=== PATIENT | male | born 1955 | race Caucasian/White ===

== ENCOUNTER 2017-04-11 13:23 | Inpatient (IN) | payer SELFPAY ==
[~2017-04-11 13:23] MED LIST: ALBUTEROL17 GM INH; ATENOLOL25 MG PO; AZITHROMYCIN250 MG PO; COMBIVENT1 PUFF INH; IBUPROFEN800 MG PO; LISINOPRIL PO; LISINOPRIL10 MG PO; NICODERM21 MG/PATC TD; PREDNISONE10 MG PO; TRAMADOL100 MG PO; TYLENOL325 MG PO
[2017-04-11] MEDS ORDERED: IBUPROFEN200 M2 PO (13:36)
[2017-04-11 14:03] LABS: BASO % 0.1 % (0-2); EOS % 0.1 % (0-7); HCT-HEMATOCRIT 37.5 % (36.0-53.5); HGB-HEMOGLOBIN 13.3 gm/dl (13.5-17.0); IMMATURE GRANULOCYTES ABSOLUTE 0.07 tho/cmm (0-0.03); IMMATURE GRANULOCYTES PERCENT 0.4 % (0-0.3); LYMPH % 3.4 % (20-45); LYMPH ABSOLUTE COUNT 0.6 tho/cmm (0.8-4.5); MCH (MEAN CORPUSCULAR HGB) 33.2 pg (28.0-32.0); MCHC MEAN CORPUSCULAR HGB CONC 35.5 % (32.0-36.0); MCV (MEAN CELL VOLUME) 93.5 fl (82.0-96.0); MEAN PLATELET VOLUME 10.1 cmc (9.4-12.4); MONO % 5.4 % (0-12); MONOCYTE ABSOLUTE COUNT 0.9 tho/cmm (0.0-1.2); NEUTROPHIL ABSOLUTE COUNT 14.8 tho/cmm (1.6-8.0); NEUTROPHIL-AUTOMATED 14.8 tho/cmm (1.6-8.0); NEUTROPHILS % 90.6 % (40-80); PLATELET COUNT 228 tho/cmm (150-450); RED BLOOD COUNT 4.01 mil/cmm (4.40-5.70); RED CELL DISTRIBUTION WIDTH 13.2 % (12.4-16.4); WHITE BLOOD COUNT 16.3 tho/cmm (4.0-10.0)
[2017-04-11 14:21] LABS: ALB/GLOB RATIO 0.5 (0.8-2.0); ALBUMIN 2.7 g/dl (3.5-5.0); ALKALINE PHOSPHATASE 80 U/L (33-138); ALT/SGPT 27 U/L (12-78); BILIRUBIN,TOTAL 0.8 mg/dl (0.0-1.5); BLOOD UREA NITROGEN 12 mg/dl (6-24); CALCIUM 8.8 mg/dl (8.5-10.5); CARBON DIOXIDE-VENOUS 22 mmol/L (22-32); CHLORIDE 102 mmol/l (96-110); CREATININE 0.77 mg/dl (0.60-1.30); GLUCOSE 96 mg/dL (70-110); SODIUM 134 mmol/L (135-145); eGFR VALUE FOR BLACK >90 mL/Min
[2017-04-11 14:24] LABS: ANION GAP 14 mmol/L (0-20); AST/SGOT 44 U/L (10-40); POTASSIUM 3.6 mmol/L (3.7-5.1)
[2017-04-11 14:35] LABS: PROCALCITONIN 3.17 ng/ml (0.05-0.09)
[2017-04-11 20:31] LABS: ALB/GLOB RATIO 0.5 (0.8-2.0); ALBUMIN 2.3 g/dl (3.5-5.0); ALKALINE PHOSPHATASE 78 U/L (33-138); ALT/SGPT 27 U/L (12-78); BILIRUBIN,TOTAL 0.8 mg/dl (0.0-1.5); BLOOD UREA NITROGEN 9 mg/dl (6-24); CARBON DIOXIDE-VENOUS 22 mmol/L (22-32); CHLORIDE 110 mmol/l (96-110); CREATININE 0.76 mg/dl (0.60-1.30); SODIUM 140 mmol/L (135-145); eGFR VALUE FOR BLACK >90 mL/Min
[2017-04-11 20:32] LABS: ANION GAP 12 mmol/L (0-20); AST/SGOT 43 U/L (10-40); GLUCOSE 150 mg/dL (70-110); POTASSIUM 4.1 mmol/L (3.7-5.1)
[2017-04-12 04:13] LABS: BASO % 0.1 % (0-2); HCT-HEMATOCRIT 38.4 % (36.0-53.5); HGB-HEMOGLOBIN 13.2 gm/dl (13.5-17.0); IMMATURE GRANULOCYTES ABSOLUTE 0.09 tho/cmm (0-0.03); IMMATURE GRANULOCYTES PERCENT 0.6 % (0-0.3); LYMPH % 3.8 % (20-45); LYMPH ABSOLUTE COUNT 0.5 tho/cmm (0.8-4.5); MCH (MEAN CORPUSCULAR HGB) 32.7 pg (28.0-32.0); MCHC MEAN CORPUSCULAR HGB CONC 34.4 % (32.0-36.0); MEAN PLATELET VOLUME 10.2 cmc (9.4-12.4); MONO % 3.3 % (0-12); MONOCYTE ABSOLUTE COUNT 0.5 tho/cmm (0.0-1.2); NEUTROPHIL ABSOLUTE COUNT 12.9 tho/cmm (1.6-8.0); NEUTROPHIL-AUTOMATED 12.9 tho/cmm (1.6-8.0); NEUTROPHILS % 92.2 % (40-80); PLATELET COUNT 209 tho/cmm (150-450); RED BLOOD COUNT 4.04 mil/cmm (4.40-5.70); RED CELL DISTRIBUTION WIDTH 13.4 % (12.4-16.4); WHITE BLOOD COUNT 14.1 tho/cmm (4.0-10.0)
[2017-04-12 04:31] LABS: BLOOD UREA NITROGEN 10 mg/dl (6-24); CALCIUM 8.3 mg/dl (8.5-10.5); CARBON DIOXIDE-VENOUS 23 mmol/L (22-32); CREATININE 0.72 mg/dl (0.60-1.30); GLUCOSE 221 mg/dL (70-110); eGFR VALUE FOR BLACK >90 mL/Min
[2017-04-12 05:23] LABS: ANION GAP 13 mmol/L (0-20); CHLORIDE 111 mmol/l (96-110); SODIUM 143 mmol/L (135-145)
[2017-04-12 05:27] LABS: POTASSIUM 3.8 mmol/L (3.7-5.1)
[2017-04-13 06:38] LABS: BASO % 0.1 % (0-2); HCT-HEMATOCRIT 36.2 % (36.0-53.5); HGB-HEMOGLOBIN 12.6 gm/dl (13.5-17.0); IMMATURE GRANULOCYTES PERCENT 1.1 % (0-0.3); LYMPH % 5.2 % (20-45); LYMPH ABSOLUTE COUNT 0.9 tho/cmm (0.8-4.5); MCH (MEAN CORPUSCULAR HGB) 32.7 pg (28.0-32.0); MCHC MEAN CORPUSCULAR HGB CONC 34.8 % (32.0-36.0); MEAN PLATELET VOLUME 10.7 cmc (9.4-12.4); MONO % 8.8 % (0-12); MONOCYTE ABSOLUTE COUNT 1.5 tho/cmm (0.0-1.2); NEUTROPHIL ABSOLUTE COUNT 14.8 tho/cmm (1.6-8.0); NEUTROPHIL-AUTOMATED 14.8 tho/cmm (1.6-8.0); NEUTROPHILS % 84.8 % (40-80); PLATELET COUNT 271 tho/cmm (150-450); RED BLOOD COUNT 3.85 mil/cmm (4.40-5.70); RED CELL DISTRIBUTION WIDTH 13.3 % (12.4-16.4); WHITE BLOOD COUNT 17.5 tho/cmm (4.0-10.0)
[2017-04-13 06:39] LABS: BLOOD UREA NITROGEN 20 mg/dl (6-24); CALCIUM 8.8 mg/dl (8.5-10.5); CARBON DIOXIDE-VENOUS 24 mmol/L (22-32); CHLORIDE 104 mmol/l (96-110); CREATININE 0.73 mg/dl (0.60-1.30); SODIUM 138 mmol/L (135-145); eGFR VALUE FOR BLACK >90 mL/Min
[2017-04-13 06:40] LABS: ANION GAP 14 mmol/L (0-20); GLUCOSE 109 mg/dL (70-110); POTASSIUM 4.1 mmol/L (3.7-5.1)
[2017-04-14 05:51] LABS: WHITE BLOOD COUNT 12.9 tho/cmm (4.0-10.0)
[2017-04-15 05:56] LABS: HCT-HEMATOCRIT 41.6 % (36.0-53.5); HGB-HEMOGLOBIN 14.5 gm/dl (13.5-17.0); MCH (MEAN CORPUSCULAR HGB) 32.7 pg (28.0-32.0); MCHC MEAN CORPUSCULAR HGB CONC 34.9 % (32.0-36.0); MCV (MEAN CELL VOLUME) 93.7 fl (82.0-96.0); MEAN PLATELET VOLUME 9.8 cmc (9.4-12.4); NEUTROPHIL-AUTOMATED 8.9 tho/cmm (1.6-8.0); RED BLOOD COUNT 4.44 mil/cmm (4.40-5.70); RED CELL DISTRIBUTION WIDTH 13.5 % (12.4-16.4)
[2017-04-15 06:10] LABS: BASO % 0.5 % (0-2); BASO ABSOLUTE COUNT 0.1 tho/cmm (0.0-0.2); EOS % 0.7 % (0-7); EOSINOPHIL ABSOLUTE COUNT 0.1 tho/cmm (0.0-0.7); IMMATURE GRANULOCYTES ABSOLUTE 0.73 tho/cmm (0-0.03); IMMATURE GRANULOCYTES PERCENT 5.2 % (0-0.3); LYMPH % 23.7 % (20-45); LYMPH ABSOLUTE COUNT 3.3 tho/cmm (0.8-4.5); MONO % 6.6 % (0-12); MONOCYTE ABSOLUTE COUNT 0.9 tho/cmm (0.0-1.2); NEUTROPHIL ABSOLUTE COUNT 8.9 tho/cmm (1.6-8.0); NEUTROPHILS % 63.3 % (40-80); PLATELET COUNT 428 tho/cmm (150-450)
[2017-04-15] MEDS ORDERED: DELTASONE20 MG PO (12:24)
[2017-04-15] MEDS ORDERED: ROBITUSSIN COU118 M7 PO (12:25)
[2017-04-15] MEDS ORDERED: AMOXICILLIN500 M1 PO (12:26)
[2017-04-15] MEDS ORDERED: CULTURELLE1 EAC1 PO (12:29)
== END 2017-04-15 15:30 | DRG 190 ==
LOC: EDMED 13:23 → EMR2 15:50 → 5WE 17:30
PROVIDERS: Emergency Medicine; ADMIT Family Medicine
DX: J44.0 Chronic obstructive pulmonary disease with (acute) lower respiratory infection (principal); J15.4 Pneumonia due to other streptococci; R78.81 Bacteremia; E87.1 Hypo-osmolality and hyponatremia; E44.1 Mild protein-calorie malnutrition; J44.1 Chronic obstructive pulmonary disease with (acute) exacerbation; B95.5 Unspecified streptococcus as the cause of diseases classified elsewhere; E87.6 Hypokalemia; F17.210 Nicotine dependence, cigarettes, uncomplicated; Z68.26 Body mass index [BMI] 26.0-26.9, adult
CPT/HCPCS: G0009; J0696; J1650; J1956; J2930; J3370; J7030; J7512

== ENCOUNTER 2017-05-09 13:08 | Inpatient (IN) | payer SELFPAY ==
[~2017-05-09 13:08] MED LIST changes: +AMOXICILLIN500 M1 PO; +CULTURELLE1 EAC1 PO; +DELTASONE20 MG PO; +IBUPROFEN200 M2 PO; +ROBITUSSIN COU118 M7 PO
[2017-05-09 13:50] LABS: BASO % 0.5 % (0-2); EOS % 0.1 % (0-7); HCT-HEMATOCRIT 41.7 % (36.0-53.5); HGB-HEMOGLOBIN 14.6 gm/dl (13.5-17.0); IMMATURE GRANULOCYTES ABSOLUTE 0.02 tho/cmm (0-0.03); IMMATURE GRANULOCYTES PERCENT 0.2 % (0-0.3); LYMPH % 25.8 % (20-45); LYMPH ABSOLUTE COUNT 2.3 tho/cmm (0.8-4.5); MCH (MEAN CORPUSCULAR HGB) 32.6 pg (28.0-32.0); MCV (MEAN CELL VOLUME) 93.1 fl (82.0-96.0); MEAN PLATELET VOLUME 10.3 cmc (9.4-12.4); MONO % 3.2 % (0-12); MONOCYTE ABSOLUTE COUNT 0.3 tho/cmm (0.0-1.2); NEUTROPHIL ABSOLUTE COUNT 6.2 tho/cmm (1.6-8.0); NEUTROPHIL-AUTOMATED 6.2 tho/cmm (1.6-8.0); NEUTROPHILS % 70.2 % (40-80); PLATELET COUNT 232 tho/cmm (150-450); RED BLOOD COUNT 4.48 mil/cmm (4.40-5.70); WHITE BLOOD COUNT 8.9 tho/cmm (4.0-10.0)
[2017-05-09 14:00] LABS: INR 0.9 INR (0.9-1.1); PROTHROMBIN TIME 10.5 SECONDS (9.0-13.6)
[2017-05-09 14:15] LABS: ALCOHOL (ETOH) 276 mg/dl (<10); ALKALINE PHOSPHATASE 80 U/L (33-138); ALT/SGPT 53 U/L (12-78); BILIRUBIN,TOTAL 0.8 mg/dl (0.0-1.5); BLOOD UREA NITROGEN 12 mg/dl (6-24); CALCIUM 8.7 mg/dl (8.5-10.5); CARBON DIOXIDE-VENOUS 20 mmol/L (22-32); CHLORIDE 108 mmol/l (96-110); CREATININE 0.87 mg/dl (0.60-1.30); LIPASE 173 U/L (73-393); PHOSPHOROUS 3.3 mg/dl (2.5-4.9); SODIUM 144 mmol/L (135-145); eGFR VALUE FOR BLACK >90 mL/Min
[2017-05-09 14:22] LABS: ALB/GLOB RATIO 0.9 (0.8-2.0); ALBUMIN 3.7 g/dl (3.5-5.0); ANION GAP 20 mmol/L (0-20); BILIRUBIN,INDIRECT 0.6 mg/dL (0.0-1.0); POTASSIUM 4.2 mmol/L (3.7-5.1)
[2017-05-09 14:23] LABS: AST/SGOT 72 U/L (10-40); BILIRUBIN,DIRECT 0.2 mg/dl (0.0-0.3); MAGNESIUM 2.2 mg/dl (1.8-2.6)
[2017-05-09 14:41] LABS: GLUCOSE 65 mg/dL (70-110)
[2017-05-09] MEDS ORDERED: NORCO 5-325 TA1 EACH PO (15:33)
[2017-05-09] MEDS ORDERED: COLACE100 M1 PO (15:34)
[2017-05-09 17:23] LABS: URINE APPEARANCE CLEAR; URINE BILIRUBIN NEGATIVE (NEG); URINE BLOOD NEGATIVE (NEG); URINE COLOR YELLOW; URINE GLUCOSE (UA) NEGATIVE (NEG); URINE KETONE SMALL (NEG); URINE LEUKOCYTE ESTERASE NEGATIVE (NEG); URINE NITRITE NEGATIVE (NEG); URINE PROTEIN NEGATIVE (NEG)
[2017-05-09 17:31] LABS: URINE RBC RARE /[HPF] (0-5); URINE WBC RARE /[HPF] (0-5)
[2017-05-09 17:32] LABS: URINE AMORPHOUS 1+; URINE MUCUS 1+
[2017-05-09 17:36] LABS: PROCALCITONIN <0.05 ng/ml (0.05-0.09)
[2017-05-09 21:56] LABS: ALB/GLOB RATIO 0.9 (0.8-2.0); ALBUMIN 3.2 g/dl (3.5-5.0); ALKALINE PHOSPHATASE 66 U/L (33-138); ALT/SGPT 43 U/L (12-78); ANION GAP 16 mmol/L (0-20); AST/SGOT 50 U/L (10-40); BLOOD UREA NITROGEN 7 mg/dl (6-24); CALCIUM 7.7 mg/dl (8.5-10.5); CARBON DIOXIDE-VENOUS 23 mmol/L (22-32); CHLORIDE 108 mmol/l (96-110); CREATININE 0.65 mg/dl (0.60-1.30); GLUCOSE 85 mg/dL (70-110); POTASSIUM 3.5 mmol/L (3.7-5.1); SODIUM 143 mmol/L (135-145); eGFR VALUE FOR BLACK >90 mL/Min
[2017-05-09 21:59] LABS: ALCOHOL (ETOH) 53 mg/dl (<10)
[2017-05-10 04:19] LABS: BASO % 0.2 % (0-2); HCT-HEMATOCRIT 37.9 % (36.0-53.5); HGB-HEMOGLOBIN 13.2 gm/dl (13.5-17.0); LYMPH % 6.4 % (20-45); LYMPH ABSOLUTE COUNT 0.4 tho/cmm (0.8-4.5); MCH (MEAN CORPUSCULAR HGB) 32.2 pg (28.0-32.0); MCHC MEAN CORPUSCULAR HGB CONC 34.8 % (32.0-36.0); MCV (MEAN CELL VOLUME) 92.4 fl (82.0-96.0); MEAN PLATELET VOLUME 10.6 cmc (9.4-12.4); MONO % 0.2 % (0-12); NEUTROPHIL ABSOLUTE COUNT 5.1 tho/cmm (1.6-8.0); NEUTROPHIL-AUTOMATED 5.1 tho/cmm (1.6-8.0); NEUTROPHILS % 93.2 % (40-80); PLATELET COUNT 205 tho/cmm (150-450); RED CELL DISTRIBUTION WIDTH 12.5 % (12.4-16.4); WHITE BLOOD COUNT 5.5 tho/cmm (4.0-10.0)
[2017-05-10 04:30] LABS: ANION GAP 15 mmol/L (0-20); BLOOD UREA NITROGEN 8 mg/dl (6-24); CARBON DIOXIDE-VENOUS 23 mmol/L (22-32); CHLORIDE 102 mmol/l (96-110); CREATININE 0.61 mg/dl (0.60-1.30); POTASSIUM 3.9 mmol/L (3.7-5.1); SODIUM 136 mmol/L (135-145); eGFR VALUE FOR BLACK >90 mL/Min
[2017-05-10 04:45] LABS: GLUCOSE 129 mg/dL (70-110)
[2017-05-11 06:18] LABS: HCT-HEMATOCRIT 35.3 % (36.0-53.5); HGB-HEMOGLOBIN 12.5 gm/dl (13.5-17.0); IMMATURE GRANULOCYTES ABSOLUTE 0.02 tho/cmm (0-0.03); IMMATURE GRANULOCYTES PERCENT 0.2 % (0-0.3); LYMPH % 4.6 % (20-45); LYMPH ABSOLUTE COUNT 0.5 tho/cmm (0.8-4.5); MCH (MEAN CORPUSCULAR HGB) 32.5 pg (28.0-32.0); MCHC MEAN CORPUSCULAR HGB CONC 35.4 % (32.0-36.0); MCV (MEAN CELL VOLUME) 91.7 fl (82.0-96.0); MEAN PLATELET VOLUME 11.2 cmc (9.4-12.4); MONO % 2.2 % (0-12); MONOCYTE ABSOLUTE COUNT 0.2 tho/cmm (0.0-1.2); NEUTROPHIL ABSOLUTE COUNT 9.9 tho/cmm (1.6-8.0); NEUTROPHIL-AUTOMATED 9.9 tho/cmm (1.6-8.0); PLATELET COUNT 180 tho/cmm (150-450); RED BLOOD COUNT 3.85 mil/cmm (4.40-5.70); RED CELL DISTRIBUTION WIDTH 12.5 % (12.4-16.4)
[2017-05-11 06:28] LABS: ANION GAP 10 mmol/L (0-20); BLOOD UREA NITROGEN 10 mg/dl (6-24); CALCIUM 8.6 mg/dl (8.5-10.5); CARBON DIOXIDE-VENOUS 26 mmol/L (22-32); CHLORIDE 103 mmol/l (96-110); CREATININE 0.65 mg/dl (0.60-1.30); GLUCOSE 118 mg/dL (70-110); POTASSIUM 3.5 mmol/L (3.7-5.1); SODIUM 135 mmol/L (135-145); eGFR VALUE FOR BLACK >90 mL/Min
[2017-05-11 06:29] LABS: WHITE BLOOD COUNT 10.6 tho/cmm (4.0-10.0)
[2017-05-13 04:25] LABS: EOS % 0.1 % (0-7); HCT-HEMATOCRIT 40.2 % (36.0-53.5); HGB-HEMOGLOBIN 13.9 gm/dl (13.5-17.0); IMMATURE GRANULOCYTES ABSOLUTE 0.03 tho/cmm (0-0.03); IMMATURE GRANULOCYTES PERCENT 0.4 % (0-0.3); LYMPH % 28.7 % (20-45); LYMPH ABSOLUTE COUNT 2.4 tho/cmm (0.8-4.5); MCH (MEAN CORPUSCULAR HGB) 32.4 pg (28.0-32.0); MCHC MEAN CORPUSCULAR HGB CONC 34.6 % (32.0-36.0); MCV (MEAN CELL VOLUME) 93.7 fl (82.0-96.0); MEAN PLATELET VOLUME 11.2 cmc (9.4-12.4); MONO % 7.7 % (0-12); MONOCYTE ABSOLUTE COUNT 0.7 tho/cmm (0.0-1.2); NEUTROPHIL ABSOLUTE COUNT 5.3 tho/cmm (1.6-8.0); NEUTROPHIL-AUTOMATED 5.3 tho/cmm (1.6-8.0); NEUTROPHILS % 63.1 % (40-80); PLATELET COUNT 188 tho/cmm (150-450); RED BLOOD COUNT 4.29 mil/cmm (4.40-5.70); RED CELL DISTRIBUTION WIDTH 13.4 % (12.4-16.4); WHITE BLOOD COUNT 8.4 tho/cmm (4.0-10.0)
[2017-05-13 04:33] LABS: ANION GAP 11 mmol/L (0-20); BLOOD UREA NITROGEN 16 mg/dl (6-24); CALCIUM 8.7 mg/dl (8.5-10.5); CARBON DIOXIDE-VENOUS 27 mmol/L (22-32); CHLORIDE 104 mmol/l (96-110); CREATININE 0.76 mg/dl (0.60-1.30); GLUCOSE 100 mg/dL (70-110); POTASSIUM 3.8 mmol/L (3.7-5.1); SODIUM 138 mmol/L (135-145); eGFR VALUE FOR BLACK >90 mL/Min
[2017-05-13] MEDS ORDERED: LEVAQUIN750 M1 PO (10:26)
[2017-05-13] MEDS ORDERED: PREDNISONE10 M1 PO (10:31)
[2017-05-13] MEDS ORDERED: MUCINEX600 M1 PO (10:32)
== END 2017-05-13 18:00 | DRG 871 ==
LOC: EDMED 13:08 → EMR2 15:44 → PCUA 19:30 → 5WE 05-12 16:54
PROVIDERS: Emergency Medicine; Internal Medicine; Internal Medicine Pulmonary Disease; Nurse Practitioner; ADMIT Family Medicine
PROC: B246ZZZ Ultrasonography of Right and Left Heart (ICD-10-PCS; principal; 2017-05-10)
DX: A41.9 Sepsis, unspecified organism (principal); J18.9 Pneumonia, unspecified organism; R42 Dizziness and giddiness; Y95 Nosocomial condition; R00.0 Tachycardia, unspecified; Z72.89 Other problems related to lifestyle; Z86.19 Personal history of other infectious and parasitic diseases; Z72.0 Tobacco use
CPT/HCPCS: A9540; A9558; C8929; G0480; J1650; J1956; J2060; J2543; J2930; J3370; J7030; J7512